=== PATIENT | female | born 1995 | race African-American/Black ===

== ENCOUNTER 2017-05-07 10:34 | Emergency (ER) | payer OTHER ==
[~2017-05-07] VITALS: Ht 167.6 cm; Wt 76.0 kg
[2017-05-07 10:45] VITALS: BP 140/65
[2017-05-07] MEDS ORDERED: IBUPROFEN 600MG TABLET PO ONE (13:15)
== END 2017-05-07 14:10 | disposition home or self-care (01) ==
LOC: ER 12:40
DX: M79.641 Pain in right hand (principal); F12.10 Cannabis abuse, uncomplicated; Z88.0 Allergy status to penicillin
CPT/HCPCS: 73130; 81025; 99284

== ENCOUNTER 2017-12-16 16:25 | Emergency (ER) | payer MEDICAID, OTHER ==
[~2017-12-16] VITALS: Ht 170.2 cm; Wt 78.3 kg
[2017-12-16 16:34] VITALS: BP 125/78
== END 2017-12-16 20:01 | disposition home or self-care (01) ==
LOC: ER 16:52
DX: S60.454A Superficial foreign body of right ring finger, initial encounter (principal); F12.10 Cannabis abuse, uncomplicated; Z88.0 Allergy status to penicillin; Z88.1 Allergy status to other antibiotic agents; W45.8XXA Other foreign body or object entering through skin, initial encounter; Y93.89 Activity, other specified; Y92.89 Other specified places as the place of occurrence of the external cause; Y99.8 Other external cause status
CPT/HCPCS: 99281

== ENCOUNTER 2025-10-26 07:56 | Emergency (ER) | payer MEDICAID, OTHER ==
[~2025-10-26] VITALS: Ht 172.7 cm; Wt 105.0 kg
[2025-10-26 08:05] VITALS: O2SAT 100
[2025-10-26 08:50] LABS: CLARITY URINE CLEAR (CLEAR); COLOR URINE YELLOW (YELLOW); GLUCOSE URINE NEGATIVE (NEGATIVE); KETONES URINE NEGATIVE (NEGATIVE); LEUKOCYTE ESTERASE URINE 1+ (NEGATIVE); NITRITE URINE NEGATIVE (NEGATIVE); OCCULT BLOOD URINE 3+ (NEGATIVE); PH URINE 7.0 (4.5-8.0); PROTEIN URINE NEGATIVE (NEGATIVE); SPECIFIC GRAVITY URINE 1.017 (1.005-1.030); UROBILINOGEN URINE 1.0 E.U./dL (0.2-1.0)
[2025-10-26 09:06] LABS: SQUAMOUS EPITHELIAL CELL URINE 2+ /lpf (RARE/1+)
[2025-10-26 09:07] LABS: WBC URINE 0-2 /hpf (0-2)
[2025-10-26 09:08] LABS: RBC URINE TNTC /hpf (0-2)
[2025-10-26 09:09] LABS: BACTERIA URINE TRACE
[2025-10-26] MEDS ORDERED: NITR-87 MT (09:14)
[2025-10-26 09:19] VITALS: BP 149/67; PULSE 80; RESP 15; TEMP 36.6; O2SAT 99
== END 2025-10-26 09:32 | disposition home or self-care (01) ==
LOC: ER 07:56
DX: R35.0 Frequency of micturition (principal); F12.90 Cannabis use, unspecified, uncomplicated; Z55.6 Problems related to health literacy; Z88.0 Allergy status to penicillin
CPT/HCPCS: 81003; 81025; 99283